=== PATIENT | female | born 1975 | race Caucasian/White ===

== ENCOUNTER 2016-12-01 09:54 | Emergency (ER) | payer SELFPAY ==
[~2016-12-01] VITALS: Ht 167.6 cm; Wt 59.0 kg
[2016-12-01 10:00] VITALS: Ht 167.6 cm; Wt 59.0 kg
[2016-12-01] MEDS ORDERED: ONDANSETRON 4 MG INJ IV STA ×2 (10:08→11:15)
[2016-12-01] MEDS ORDERED: HYDROmorphONE 1 MG/ML SYG IV STA (10:08)
[2016-12-01] MEDS ORDERED: SOD CHLORIDE 0.9% 1,000 ML IV STA (10:08)
[2016-12-01 10:42] LABS: BASOPHILS % 0.3 % (0.0-2.0); EOSINOPHILS # 0.1 10^3/ul (0.0-0.5); EOSINOPHILS % 0.7 % (0.0-7.0); HEMATOCRIT 38.2 % (37.0-47.0); HEMOGLOBIN 12.5 g/dl (12.0-16.0); LYMPHOCYTES # 1.9 10^3/ul (0.8-2.9); MEAN CORPUSCULAR HGB CONC 32.8 g/dl (32.0-37.0); MEAN CORPUSCULAR VOLUME 79.3 fl (82.0-101.0); MEAN PLATELET VOLUME 10.9 fl (7.4-10.4); MONOCYTES % 7.4 % (0.0-11.0); NEUTROPHIL # 10.5 10^3/ul (1.6-7.5); NEUTROPHILS % 77.6 % (39.0-77.0); PLATELET COUNT 184 10^3/UL (140-440); RED BLOOD COUNT 4.82 10^6/ul (4.20-5.40); RED CELL DISTRIBUTION WIDTH 15.5 % (11.5-14.5); UNCORRECTED WBC 13.5 10^3/ul (4.8-10.8); WHITE BLOOD COUNT 13.5 10^3/ul (4.8-10.8)
[2016-12-01 10:44] LABS: CONDITION 1; LH ANALYZER COMMENTS 1; SUSPECT 1
[2016-12-01] MEDS ORDERED: morphine 4 MG/ML VIAL IV STA (11:15)
--- NOTE | 2016-12-01 11:39 | RADRPT ---
PROCEDURE: First trimester obstetrical ultrasound. CLINICAL INDICATION: , pelvic pain TECHNIQUE: Transabdominal and transvaginal tyler scale and color Doppler ultrasound of the uterus . COMPARISON: None available FINDINGS: No definite evidence of extrauterine gestation is seen. Endometrial thickness measuring up to 13.8 mm. A few eccentric anechoic structures are present with in the endometrium of the lower uterine segment measuring up to 3 mm. Right ovary not identified by the atmospheric drier tender. Normal left ovary with preserved blood flow. Free fluid: Trace amount IMPRESSION: Eccentric anechoic structures within the fundal endometrium to the left measuring up to 3 mm. The a ppearance is nonspecific. Findings could represent a small early intrauterine gestational sac, pseud ogestational sac, or failed intrauterine gestation. Unless clinically contraindicated recommend correlation with quantitative beta HCG trend and repeate d pelvic ultrasound. Results were discussed with Dr. Berrios by telephone at 1134 hours on 12/01/[address] Te hernandez RPTAT: AADD .Te Richards MD, MD Date Time Electronically viewed and signed by .Te Richards MD, on 12/01/2016 11:38 .B/
[2016-12-01 12:09] LABS: ADD UMIC YES; URINE BILIRUBIN (Dip) NEGATIVE (NEGATIVE); URINE BLOOD (Dip) 3+ (NEGATIVE); URINE COLOR DK. RED (YELLOW); URINE KETONES (Dip) 3+ (NEGATIVE); URINE LEUKOCYTE ESTERASE (Dip) 3+ (NEGATIVE); URINE NITRITE (Dip) POSITIVE (NEGATIVE); URINE TOTAL PROTEIN (Dip) 4+ (NEGATIVE); URINE UROBILINOGEN (Dip) >8.0 E.U./dL (0.1-1.0)
[2016-12-01 12:23] LABS: BACTERIA,URINE MANY; URINE RBCS >200 /HPF (0)
--- NOTE | 2016-12-01 13:12 | ERD ---
ER Documentation Chief Complaint Date/Time DATE: 12/01/16 TIME: 13:03 Chief Complaint VB X2 DAYS, HEAVY YESTERDAY. 3-7 WEKKS , AP/CRAMPING, APPEARS PALE HPI Patient is a 41-year-old female who presents to the emergency department complaining of vaginal bleeding with pelvic pain. She states that she is although she does not know how far along she is. She says that she had an ultrasound done at a " clinic". She says that the clinic she was told that she was approximately 3 weeks gestation. Yesterday is when the bleeding started and it increased today. She says she is having severe cramping. This is her second and she lost the first 1 as well. She denies any abdominal trauma and states that she has not seen any by with this so far. She denies any fever, nausea, vomiting, diarrhea , dysuria, hematuria. She denies any flank, or back pain. She denies any chest pain, shortness of breath, dizziness, or loss of consciousness. The remainder of the systems are negative. ROS All systems reviewed and are negative except as per history of present illness. Medications Home Meds No Active Prescriptions or Reported Meds Allergies Allergies: Coded Allergies: No Known Allergy (Unverified , 12/01/16) Physical Exam Vitals Vital Signs Date Time Temp Pulse Resp B/P Pulse Ox O2 Delivery O2 Flow Rate FiO2 12/01/16 11:48 98.6 46 15 107/64 100 Room Air 12/01/16 10:00 43 19 133/71 100 Physical Exam Const: [] Well-developed well-nourished female intermittently screaming on the bed. Head: Atraumatic normocephalic Eyes: Normal Conjunctiva pink ENT: Normal External Ears, Nose and Mouth. Neck: Full range of motion..~ No meningismus. Resp: Clear to auscultation bilaterally Cardio: Regular rate and rhythm, no murmurs Abd: Soft, patient has voluntary guarding with anticipatory pain making it difficult to truly assess her, no masses, rebound, non distended. Normal bowel sounds Skin: No petechiae or rashes Back: No midline or flank tenderness Ext: No cyanosis, or edema Neur: Awake and alert Result Diagram: 12/01/16 1027 Results 24 hrs Laboratory Tests Test 12/01/16 10:10 12/01/16 10:27 12/01/16 11:25 Beta HCG, Quantitative 897.8mIU/ml Basophils # 0.010^3/ul Basophils % 0.3% Blood Morphology Comment Eosinophils # 0.110^3/ul Eosinophils % 0.7% Hematocrit 38.2% Hemoglobin 12.5g/dl Lymphocytes # 1.910^3/ul Lymphocytes % 14.0% Mean Corpuscular Hemoglobin 26.0pg Mean Corpuscular Hemoglobin Concent 32.8g/dl Mean Corpuscular Volume 79.3fl Mean Platelet Volume 10.9fl Monocytes # 1.010^3/ul Monocytes % 7.4% Neutrophils # 10.510^3/ul Neutrophils % 77.6% Nucleated Red Blood Cells # 0.010^3/ul Nucleated Red Blood Cells % 0.0/100WBC Platelet Count 61673^3/UL Red Blood Count 4.8210^6/ul Red Cell Distribution Width 15.5% White Blood Count 13.510^3/ul Urine Bacteria MANY Urine Bilirubin NEGATIVE Urine Clarity CLOUDY Urine Color DK. RED Urine Epithelial Cells MODERATE Urine Glucose 0.1%% Urine Hemoglobin 3+ Urine Ketones 3+ Urine Leukocyte Esterase 3+ Urine Microscopic RBC >200/HPF Urine Microscopic WBC >50/HPF Urine Nitrite POSITIVE Urine Specific [place] 1.015 Urine Total Protein 4+ Urine Urobilinogen >8.0 E.U./dL Urine pH 7.0 Current Medications Medications (Trade) Dose Ordered Sig/Julio Route PRN Reason Start Time Stop Time Status Last Admin Dose Admin Sodium Chloride (NS) 1,000 ml @ 1,000 mls/hr Q1H STAT IV 12/01/16 10:08 12/01/16 11:07 DC 12/01/16 10:18 Hydromorphone HCl (Dilaudid) 0.5 mg ONCE STAT IV 12/01/16 10:08 12/01/16 10:11 DC 12/01/16 10:19 Ondansetron HCl (Zofran Inj) 4 mg ONCE STAT IV 12/01/16 10:08 12/01/16 10:11 DC 12/01/16 10:18 Morphine Sulfate (morphine) 4 mg ONCE STAT IV 12/01/16 11:15 12/01/16 11:18 DC Ondansetron HCl (Zofran Inj) 4 mg ONCE STAT IV 12/01/16 11:15 12/01/16 11:18 DC Procedures/MDM Pelvic ultrasound was initially interpreted as a saclike structure within the uterus with no obvious detected, there was some bleeding noted around this structure. The radiologist however called me and stated that he believed the patient had actually completed her miscarriage and that this was some cyst within the uterus itself. Unfortunately given the fact that she only has one beta quant this cannot be completely confirmed. 1135: I consulted Dr. FOY the carbon coating machine operator who is on-call. He came to evaluate the patient. He feels that more than likely the patient has completed a miscarriage however given once again the fact that we only have one beta quant this cannot be within 100%. He advised her that she needs to return to the emergency department in the next 2 days to have a repeat beta quant and repeat ultrasound done at that time or sooner if she has any increasing abdominal pain. 1310: Patient is much calmer at this time. Her pelvic pain seems to have subsided significantly. It is felt she is stable for discharge home with follow -up in the next 2 days. She has been advised to return in the next 2 days or sooner if her pain returns or increases suddenly. Departure Diagnosis: Primary Impression: Threatened miscarriage Additional Impression: Urinary tract infection Urinary tract infection type: acute cystitis Hematuria presence: with hematuria Qualified Code: N30.01 - Acute cystitis with hematuria Condition: Stable Referrals: ROSETTE FOY MD Additional Instructions: You should return to the emergency department in 2 days to have a repeat beta- hCG drawn and a repeat ultrasound done. You should return to the emergency department sooner if you have any sudden increase in abdominal pain or any new or worsening symptoms. ANGI WHITTINGTON Dec 01, 2016 13:12
[2016-12-01] MEDS ORDERED: PREN-19 PO (13:16)
[2016-12-01] MEDS ORDERED: NITR-58 PO (13:16)
[2016-12-01] MEDS ORDERED: ONDA4TAB8 PO (13:17)
[2016-12-01] MEDS ORDERED: TRAM50TA2 PO (13:17)
[2016-12-01 13:30] VITALS: BP 91/56; PULSE 51; RESP 16; TEMP 98.4
== END 2016-12-01 13:30 | disposition home or self-care (01) ==
LOC: E/R 09:54
DX: O20.0 Threatened abortion (principal); O23.11 Infections of bladder in pregnancy, first trimester; Z3A.01 Less than 8 weeks gestation of pregnancy
CPT/HCPCS: 36415; 76801; 76817; 81001; 84702; 85025; 86900; 86901; 93005; 96374; 96375; 99285; J1170; J2405; J7030; 81003